=== PATIENT | male | born 1965 | race Hispanic/Latino ===

== ENCOUNTER 2019-01-01 13:35 | Observation (INO) | payer BC ==
[2019-01-01 14:02] VITALS: BMI 30.5
[2019-01-01 14:08] VITALS: O2SAT 95
--- NOTE | 2019-01-01 14:22 | ED PDOC ---
Arrival/HPI - General Chief Complaint: Chest Pain Time Seen by Provider: 01/01/19 13:46 Historian: Patient - History of Present Illness Narrative History of Present Illness (Text): 01/01/19 14:18 53 year old male, with no significant past medical history, presents to the ED for evaluation of a sudden onset of chest pain since this morning. Patient describes a constant tightness and pinching pain to the left side of his chest, brought while sitting down in his car. He notes visiting the nurse's office at work and was notified of elevated blood pressure and was subsequently referred to the ED. Patient reports associated mild SOB, lightheadedness and diaphoresis when walking to the ambulance. Patient states taking 81mg Aspirin at home but denies any other medication. Patient denies any fever, chills, nausea, vomiting, abdominal pain, back pain, neck pain, vision changes or any other complaints. PMD: Dr. Ellis Time/Duration: Prior to Arrival Symptom Onset: Gradual Symptom Course: Unchanged Quality: Tightness Activities at Onset: Light Context: Work Past Medical History - Provider Review Nursing Documentation Reviewed: Yes - Infectious Disease Hx of Infectious Diseases: None - Tetanus Immunization Tetanus Immunization: Unknown - Cardiac Hx Cardiac Disorders: Yes - Pulmonary Hx Respiratory Disorders: Yes Hx Bronchitis: Yes - Neurological Hx Dizziness: Yes Other/Comment: SYNCOPE,LIGHTHEADEDNESS - HEENT Other/Comment: WEARS RX GLASSES - Renal Hx Kidney Stones: Yes (PASSED IT) - Musculoskeletal/Rheumatological Hx Falls: Yes - Gastrointestinal Hx Gastroesophageal Reflux: Yes Other/Comment: 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,HEMORRHOID,HIATAL HERNIA - Psychiatric Hx Depression: No Hx Emotional Abuse: No Hx Physical Abuse: No Hx Substance Use: No - Surgical History Other/Comment: bilateral ACL repair - Suicidal Assessment Feels Threatened In Home Enviroment: No Family/Social History - Physician Review Nursing Documentation Reviewed: Yes Family/Social History: Unknown Family HX Smoking Status: Never Smoked Hx Alcohol Use: Yes (DRINK OCCASIONALLY) Hx Substance Use: No Hx Substance Use Treatment: No Allergies/Home Meds Allergies/Adverse Reactions: Allergies No Known Allergies Allergy (Verified 02/01/13 12:58) Home Medications: Home Meds Medication Instructions Recorded Confirmed Aspirin 0 mg PO 02/01/13 02/01/13 Rosuvastatin Calcium [Crestor] 0 mg PO 02/01/13 02/01/13 Review of Systems - Physician Review All systems were reviewed & negative as marked: Yes - Review of Systems Eyes: absent: Vision Changes Cardiovascular: Chest Pain Musculoskeletal: absent: Back Pain Physical Exam - Physical Exam Narrative Physical Exam (Text): 01/01/19 14:23 Constitutional: No acute distress. Head: Normocephalic. Atraumatic. Eyes: PERRL. ENT: Moist mucous membranes. Neck: Supple. Cardiovascular: Regular rate. Chest: No tenderness. Respiratory: Clear to auscultation bilaterally. GI: Soft. Nontender. Nondistended. Back: No CVA tenderness. Musculoskeletal: No tenderness or swelling of extremities. Skin: No rash. Neurologic: Alert, no focal deficit. Vital Signs Reviewed: Yes Vital Signs Temp Pulse Resp BP Pulse Ox 01/01/19 14:02 98.1 F 80 17 157/95 H 95 Temperature: Afebrile Blood Pressure: Normal Pulse: Regular Respiratory Rate: Normal Appearance: Positive for: Well-Appearing, Non-Toxic, Comfortable Pain Distress: None Mental Status: Positive for: Alert and Oriented X 3 Medical Decision Making ED Course and Treatment: 01/01/19 14:23 Impression: 53 year old male presents to the ED complaining of left sided chest pain since this morning. Plan: -- EKG -- Labs -- CXR -- Aspirin -- Reassess and disposition Prior Visits: Notes and results from previous visits were reviewed. Progress Notes: 01/01/19 14:24 EKG reviewed, shows NSR @ 69bpm, no ST/T wave changes. 01/01/19 14:59 Patient states worsening chest pain with anxiousness, repeat EKG ordered. EKG shows NSR 68 bpm, no ST/T wave changes. 01/01/19 15:41 CXR reviewed by radiologist, shows no active disease. 01/01/19 15:46 Dr. Ellis accepts patient to his service. Recommends Dr. Copeland for cardiology consultation. - Scribe Statement The provider has reviewed the documentation as recorded by the Jenniferibmaya Rodriguez All medical record entries made by the Scribmaya were at my direction and personally dictated by me. I have reviewed the chart and agree that the record accurately reflects my personal performance of the history, physical exam, medical decision making, and the department course for this patient. I have also personally directed, reviewed, and agree with the discharge instructions and disposition. Disposition/Present on Arrival - Present on Arrival Any Indicators Present on Arrival: No History of DVT/PE: No History of Uncontrolled Diabetes: No Urinary Catheter: No History of Decub. Ulcer: No History Surgical Site Infection Following: None - Disposition Have Diagnosis and Disposition been Completed?: Yes Diagnosis: Chest pain Disposition: HOSPITALIZED Disposition Time: 15:46 Patient Plan: Observation, Telemetry Condition: FAIR Discharge Instructions (ExitCare): Chest Pain (ED) Forms: [employer] (Sami)
[2019-01-01 15:02] LABS: BASO # 0.02 K/mm3 (0.0-2.0); BASO % 0.4 % (0.0-3.0); EOS # 0.3 (0.0-0.7); EOS % 5.8 % (1.5-5.0); LYMPH # 1.2 (1.2-3.4); LYMPH % 22.1 % (22.0-35.0); MEAN CELL VOLUME 96.5 fl (80.0-105.0); MEAN CORPUSCULAR HEMOGLOBIN 32.7 pg (25.0-35.0); MEAN CORPUSCULAR HGB CONC 33.9 g/dl (31.0-37.0); MEAN PLATELET VOLUME 10.1 fl (7.0-11.0); MONO # 0.4 (0.1-0.6); MONO % 7.5 % (1.0-6.0); RBC 4.59 10^6/uL (3.5-6.1); RED CELL DISTRIBUTION WIDTH 12.3 % (11.5-14.5); WHITE BLOOD COUNT 5.2 10^3/uL (4.5-11.0)
[2019-01-01 15:12] LABS: ALB/GLOB RATIO 1.4 (1.1-1.8); ALBUMIN 4.7 g/dL (3.0-4.8); ALT/SGPT 36 U/L (7-56); AST/SGOT 33 U/L (17-59); BLOOD UREA NITROGEN 16 mg/dL (7-21); CALCIUM 9.9 mg/dL (8.4-10.5); GFR NON-AFRICAN AMERICAN > 60
[2019-01-01 15:23] LABS: TROPONIN I < 0.01 ng/mL
--- NOTE | 2019-01-01 15:35 | RAD ---
Date of service: 01/01/2019 HISTORY: chest pain COMPARISON: 02/01/2013 TECHNIQUE: Chest PA and lateral views FINDINGS: LUNGS: No active pulmonary disease. PLEURA: No significant pleural effusion identified. No pneumothorax apparent. CARDIOVASCULAR: No aortic atherosclerotic calcification present. Normal cardiac size. No pulmonary vascular congestion. OSSEOUS STRUCTURES: No significant abnormalities. VISUALIZED UPPER ABDOMEN: Normal. OTHER FINDINGS: None. IMPRESSION: No active disease.
--- NOTE | 2019-01-01 17:14 | CARD ---
APPROVED REPORT Date of service: 01/01/2019 EKG Measurement Heart [id number] 158P21 [id number] <Conclusion> Normal sinus rhythm Normal ECG
--- NOTE | 2019-01-01 17:15 | CARD ---
APPROVED REPORT Date of service: 01/01/2019 EKG Measurement Heart [id number] 160P24 [id number] <Conclusion> Normal sinus rhythm Normal ECG
--- NOTE | 2019-01-01 22:49 | HP ---
HISTORY OF PRESENT ILLNESS: The patient is a 53-year-old man with a past medical history of hyperlipidemia who presented for evaluation of a 1 day history of substernal chest discomfort associated with nausea and diaphoresis. The patient was previously seen in his PMD's office approximately 2 months ago for complaint of exertional dyspnea and substernal chest pressure. He was advised to undergo a nuclear stress test however he follow up as scheduled. Since that visit he has been having intermittent angina. On the day of presentation to the ED he developed a sudden onset of substernal chest tightness associated with lightheadedness and diaphoresis. Given his risk factors and family history of underlying cardiac illness, he was brought to the ED for further evaluation. In the ED he was afebrile and hemodynamically stable but with persistent chest discomfort. An initial troponin and EKG were unremarkable and he was subsequently admitted to the telemetry glez for cardiac evaluation. PAST MEDICAL HISTORY: As per HPI, also GERD and NIDDM (diet-controlled) PAST SURGICAL HISTORY: Bilateral ACL tear repair. ALLERGIES: Penicillin. FAMILY HISTORY: Significant for CAD s/p MS s/p CABG in his mother. SOCIAL HISTORY: The patient reports social alcohol use and denies tobacco use or illicit drug abuse. REVIEW OF SYSTEMS: A 12-point review of systems is negative except as per HPI. PHYSICAL EXAMINATION: VITAL SIGNS: Temperature 98.1, pulse 80, blood pressure 157/95, respiratory rate 20, oxygen saturation 95% on room air. GENERAL: No apparent distress. HEENT: PERRL, EOMI. No scleral icterus. No conjunctival pallor. NECK: No JVD, no bruits. LUNGS: Clear to auscultation. CARDIOVASCULAR: Regular rate and rhythm. Normal S1, S2. No murmurs. ABDOMEN: Normoactive bowel sounds, soft, nontender and nondistended. EXTREMITIES: No edema. NEUROLOGIC: Awake, alert and oriented x 3. No focal motor deficits. LABORATORY DATA: WBC 5.2, hemoglobin 15, hematocrit 44, platelets 179. Sodium 140, potassium 3.8, chloride 102, bicarb 27, BUN 16, creatinine 0.6, glucose 121. Troponin < 0.01. IMAGING STUDIES: 1. Chest x-ray demonstrates no acute pathology. ASSESSMENT: The patient is a 53-year-old man with a past medical history of hyperlipidemia, diet-controlled T2DM and GERD who presented for evaluation of a several day history of classic angina. PLAN: 1. Angina. Cardiology evaluation with Dr. Copeland is pending. An initial troponin is negative. We will continue to cycle cardiac enzymes and EKGs for 3 sets. Continue with telemetry monitoring. 2. Hyperlipidemia. Most recent labs from 08/2018 with total cholesterol of 191. The patient is on Crestor 10 mg p.o. daily at home however this is not on formulary thus we will start Lipitor 20 mg p.o. daily. 3. GERD. The patient is on Esomeprazole 40 mg p.o. daily however this is not on formulary thus we will start Protonix 40 mg p.o. daily. 4. T2DM, diet-controlled. Most recent A1c of 6.6. The patient was previously on Metformin 500 mg p.o. daily however with lifestyle modifications he was able to achieve target glycemic control and was weaned off medications. 5. Prophylaxis. GI prophylaxis not indicated as the patient is on Protonix. DVT prophylaxis not indicated as the patient is ambulatory. CODE STATUS: Full code. Baldomero Ellis MD MTDRao
[2019-01-02 06:44] LABS: HEMOGLOBIN 14.2 g/dL (14.0-18.0); MEAN CELL VOLUME 98.4 fl (80.0-105.0); MEAN CORPUSCULAR HEMOGLOBIN 32.3 pg (25.0-35.0); MEAN CORPUSCULAR HGB CONC 32.8 g/dl (31.0-37.0); RBC 4.4 10^6/uL (3.5-6.1); RED CELL DISTRIBUTION WIDTH 12.3 % (11.5-14.5); WHITE BLOOD COUNT 4.8 10^3/uL (4.5-11.0)
[2019-01-02 06:52] VITALS: RESP 18
[2019-01-02 07:04] LABS: ALB/GLOB RATIO 1.1 (1.1-1.8); ALBUMIN 3.8 g/dL (3.0-4.8); ALT/SGPT 34 U/L (7-56); AST/SGOT 32 U/L (17-59); BLOOD UREA NITROGEN 15 mg/dL (7-21); CALCIUM 9.3 mg/dL (8.4-10.5); GFR NON-AFRICAN AMERICAN > 60
[2019-01-02 07:12] LABS: TROPONIN I < 0.01 ng/mL
--- NOTE | 2019-01-02 09:16 | PN ---
SUBJECTIVE: The patient was seen and examined at bedside on the telemetry glez. No acute events overnight. He remains afebrile, hemodynamically stable and chest pain free. This morning he feels well and denies any recurrence of his presenting symptoms. OBJECTIVE: VITAL SIGNS: Temperature 98, pulse 53, blood pressure 139/79, respiratory rate 18, oxygen saturation 99% on room air. GENERAL: No apparent distress. HEENT: PERRL, EOMI. No scleral icterus. No conjunctival pallor. NECK: No JVD, no bruits. LUNGS: Clear to auscultation. CARDIOVASCULAR: Regular rate and rhythm. Normal S1, S2. No murmurs. ABDOMEN: Normoactive bowel sounds, soft, nontender and nondistended. EXTREMITIES: No edema. NEUROLOGIC: Awake, alert and oriented x 3. No focal motor deficits. LABORATORY DATA: CBC reviewed and unremarkable. CMP reviewed and unremarkable. Troponin < 0.01 (for 3 sets). ASSESSMENT: The patient is a 53-year-old man with a past medical history of hyperlipidemia, diet-controlled T2DM and GERD who presented for evaluation of angina. PLAN: 1. Angina, with no evidence of ACS. He remains hemodynamically stable, chest pain free and with 3 sets of negative cardiac biomarkers. Cardiology evaluation is pending with Dr. Copeland for further evaluation. 2. Hyperlipidemia. Continue Lipitor 20 mg p.o. daily. 3. GERD. Continue Protonix 40 mg p.o. daily. 4. T2DM, diet-controlled. The patient remains off medications and his most recent A1c is 6.6. 5. Prophylaxis. GI prophylaxis not indicated as the patient is eating. DVT prophylaxis not indicated as the patient is ambulatory. CODE STATUS: Full code. Baldomero Ellis MD MTDD
[2019-01-02] MEDS ORDERED: Pantoprazole 40 mg EC Tab PO SCH (10:00)
[2019-01-02] MEDS ORDERED: Iodixanol 320 MG/ML 100 ML BOTTLE IV ONE (10:18)
[2019-01-02] MEDS ORDERED: Iohexol 350mgl/ml 50 ML ONE (10:18)
[2019-01-02] MEDS ORDERED: Nitroglycerin 50mg in D5W 0 MG/0 ML BOTTLE IV ONE (10:18)
[2019-01-02] MEDS ORDERED: Iodixanol 320 MG/ML 200 ML BOTTLE IV ONE (10:18)
[2019-01-02] MEDS ORDERED: Phenylephrine 10 mg/ml Inj ONE (10:18)
[2019-01-02] MEDS ORDERED: Lidocaine PF 2% (5 ml) Inj (For Cardiac Arrhy) ONE (10:18)
[2019-01-02] MEDS ORDERED: Midazolam 2 MG/2 ML VIAL ONE ×2 (11:02→11:06)
[2019-01-02] MEDS ORDERED: Sodium Chloride 0.9% 1,000 ML IV SCH (11:30)
--- NOTE | 2019-01-02 12:15 | CON ---
DATE OF CONSULTATION: 01/01/2019 CARDIOLOGY CONSULTATION HISTORY: The patient is a 53-year-old male, who presented to the emergency room with recurrence of angina. PAST MEDICAL HISTORY: His past medical history includes diabetes mellitus, hypercholesterolemia as well as a strong family history for CAD. He has had on and off chest pain including now, pain at rest. SOCIAL HISTORY: The patient does not smoke. ALLERGIES: NO ALLERGIES ARE NOTED OTHER THAN QUESTIONABLE PENICILLIN. REVIEW OF SYSTEMS: A 14-point review of systems is reviewed in detail. No shortness of breath. No ulcers. No edema in the lower extremities. No orthopnea. He did suffer from diverticulitis in the past, but no peptic ulcer disease. There is no bleeding disorder. PHYSICAL EXAMINATION: VITAL SIGNS: Blood pressure is 147/81, the heart rate is in the 60s. NECK: Negative JVD. LUNGS: Without rales. CARDIAC: Heart rate S1, S2. EXTREMITIES: Without edema. LABORATORY DATA: Hemoglobin is 15. Chemistries, BUN and creatinine are unremarkable. The glucose is 121. Troponins are negative. IMPRESSION: 1. Recurrent angina including angina at rest. 2. No evidence for acute coronary syndrome. 3. Diabetes mellitus. 4. Hypertension. 5. Hypercholesterolemia. 6. Strong family history for coronary artery disease. PLAN: Given these findings, the patient's pretest probability is very high for having significant coronary artery disease. The patient should proceed to cardiac catheterization. Nguyễn Copeland MD
--- NOTE | 2019-01-02 17:10 | CARDCATH ---
PROCEDURE DATE: 01/02/2019 PROCEDURES: 1. Left heart catheterization with coronary arteriography and left ventriculogram. HISTORY: The patient is a 53-year-old male with multiple cardiac risk factors, who presents with progressive anginal symptoms with a high pretest probability for CAD. Because of this, cardiac catheterization was recommended. The right femoral artery was cannulated with a 6-[place] sheath. There were no complications. I performed moderate sedation which included the presence of an independent trained observer that assisted in monitoring the patient's level of consciousness and physiologic status. After administration of Versed and fentanyl, my intra service time was 15 minutes. The findings on catheterization revealed right dominant circulation. The RCA revealed intimal irregularities without critical lesions. The left main artery was unremarkable. The LAD revealed calcification in its proximal portion with intimal irregularities throughout. In the midportion, there are intimal irregularities as well as intimal irregularities in the mid and distal portion of the LAD without critical lesions. Diagonal vessels were free of significant disease. The circumflex artery and obtuse marginal branches revealed intimal irregularities without critical lesions. Angio-Seal was used to close the femoral artery site. The patient tolerated the procedure well. In summary, the procedure revealed nonobstructive CAD with calcification in the proximal LAD. Given these findings, the patient will need to remain on aspirin indefinitely and undergo a cardiac risk reduction program which should include statin therapy as well as weight loss program and an exercise program. Nguyễn Copeland MD
[2019-01-02 17:59] VITALS: BP 149/86; TEMP 98.8
[2019-01-02 20:24] VITALS: PULSE 70
--- NOTE | 2019-01-03 23:27 | DS ---
ADMISSION DIAGNOSIS: Angina. DISCHARGE DIAGNOSIS: Angina. SECONDARY DIAGNOSES: Hyperlipidemia, GERD and non-insulin dependent diabetes mellitus (diet controlled). CONSULTATIONS: Dr. Copeland (Cardiology). IMAGING STUDIES: 1. Chest x-ray demonstrated no active disease. DIAGNOSTIC STUDIES: None. PROCEDURES: 1. Cardiac catheterization demonstrated nonobstructive CAD with calcifications to the proximal LAD. HISTORY OF PRESENT ILLNESS: The patient is a 53-year-old man with a past medical history of hyperlipidemia who presented for evaluation of 1 day history of substernal chest discomfort associated with nausea and diaphoresis. The patient was previously seen in his PMD's office approximately 2 months ago for complaint of exertional dyspnea and substernal chest pressure. He was advised to undergo a nuclear stress test however he did not follow up as advised. Since then he has been having intermittent angina. On the day of presentation to the ED he developed a sudden onset of substernal chest tightness associated with lightheadedness and diaphoresis. Given his risk factors and family history of underlying cardiac illness, he was brought to the ED for further evaluation. In the ED he was afebrile and hemodynamically stable but with persistent chest discomfort. An initial troponin and EKG were unremarkable and he was subsequently that the telemetry glez for cardiac evaluation. HOSPITAL COURSE: Upon admission to the telemetry glez he was evaluated by Dr. Copeland of Cardiology. Given his high pretest probability, recommendations were made to go directly to cardiac catheterization. The patient was taken to the cardiac catheterization lab with the findings as described above. He tolerated the procedure without difficulty and no postprocedure complications were noted. The patient was advised that given the calcifications to the LAD that he will require statin therapy and will need to start Aspirin 81 mg p.o. daily. The remainder of his hospital stay was unremarkable and on hospital day #2, he was cleared for discharge home. CONDITION: Good, improved. DISPOSITION: Home. DISCHARGE MEDICATIONS: Crestor 10 mg p.o. daily, Aspirin 81 mg p.o. daily and Esomeprazole 40 mg p.o. daily. DISCHARGE INSTRUCTIONS: The patient was advised to adhere to postprocedure instructions as per Dr. Copeland. The patient was also advised that if he has any recurrence of his symptoms to present to his PMD or to the nearest ED immediately. FOLLOWUP: The patient to follow up his PMD within 1 week of discharge. The patient to follow up with Dr. Copeland as scheduled. Baldomero Ellis MD MTDD
== END 2019-01-02 20:53 | disposition home or self-care (01) ==
LOC: ED 13:35 → ERH 15:44 → 2RNO 18:11 → 2RSO 01-02 11:44
PROVIDERS: ADMIT Internal Medicine; ATTEND Internal Medicine
DX: I25.118 Atherosclerotic heart disease of native coronary artery with other forms of angina pectoris (principal); I10 Essential (primary) hypertension; E78.00 Pure hypercholesterolemia, unspecified; E11.9 Type 2 diabetes mellitus without complications; E78.5 Hyperlipidemia, unspecified; K21.9 Gastro-esophageal reflux disease without esophagitis; Z82.49 Family history of ischemic heart disease and other diseases of the circulatory system
CPT/HCPCS: 36415; 71046; 80053; 82550; 82948; 84484; 85025; 85027; 93005; 93458; 99152; 99153; 99285; C1760; C1769; C2629; G0378; J1644; J2250; J3010; Q9966